=== PATIENT | female | born 1955 | race Caucasian/White ===

== ENCOUNTER → 2017-05-06 | Outpatient (CLI) | payer OTHER ==
--- NOTE | 2017-05-06 09:43 | REPMRS ---
Patient History The patient states she had a clinical breast exam in .Family history of breast cancer in mother at age 80 and breast cancer in maternal aunt at age 35. Digital Mammo Screening Bilat: May 06, 2017 - Exam #: [id number] Bilateral CC and MLO view(s) were taken. Technologist: Deneen Hayward Technologist Prior study comparison: March 19, 2016, bilateral digital mammo screening bilat performed at [facility]. February 15, 2015, bilateral digital mammo screening bilat performed at [facility]. January 26, 2014, bilateral digital mammo screening bilat performed at [facility]. FINDINGS: There are scattered fibroglandular densities. There is a moderate amount of residual fibroglandular tissue which is fairly symmetric. There is no interval development of dominant mass, architectural distortion, or clustered microcalcification typical of malignancy. There has been no change in the appearance of the mammogram from the prior studies. ASSESSMENT: BI-RADS/ACR category 1 mammogram. Negative. Recommendation Routine screening mammogram in 1 year (for women over age 40). This patient's Lifetime Breast Cancer RIsk is estimated at 19.5 %. Annual screening Breast MRI scanniing is recommended for patient's whose lifetime risk assessment is over 20%. This mammogram was interpreted with the aid of an FDA-approved computer-aided dectection system. Electronically Signed By: Saurabh Snow MD 05/06/17 0950
== END ==
LOC: M RAD 08:26
PROVIDERS: ATTEND Obstetrics & Gynecology
DX: Z12.31 Encounter for screening mammogram for malignant neoplasm of breast (principal)

== ENCOUNTER → 2018-05-07 | Outpatient (CLI) | payer OTHER | LOC: M RAD 10:43 | DX: Z12.31 Encounter for screening mammogram for malignant neoplasm of breast (principal); N60.31 Fibrosclerosis of right breast; N60.32 Fibrosclerosis of left breast ==

== ENCOUNTER → 2020-07-03 | Outpatient (REF) | payer OTHER | LOC: M LAB REF 09:02 | PROVIDERS: ATTEND Surgery | DX: D17.1 Benign lipomatous neoplasm of skin and subcutaneous tissue of trunk (principal) ==

== ENCOUNTER → 2020-07-24 | Outpatient (CLI) | payer SELFPAY | LOC: M LABSMTC 12:50 | PROVIDERS: ATTEND Pediatrics | DX: Z20.828 Contact with and (suspected) exposure to other viral communicable diseases (principal) ==

== ENCOUNTER 2024-07-23 16:03 | Emergency (ER) | payer BC, MEDICARE, OTHER ==
[~2024-07-23] VITALS: Ht 154.9 cm; Wt 88.7 kg
[2024-07-23] MEDS ORDERED: ATOR1TAB19 (16:25)
[2024-07-23] MEDS ORDERED: MONT10TA97 (16:25)
[2024-07-23] MEDS ORDERED: OLME40TA (16:25)
[2024-07-23] MEDS: MORPHINE 4 MG/ML 1ML VIAL IV PRN (16:53)
[2024-07-23] MEDS: ONDANSETRON 4MG 2ML VIAL IV ONE (16:55)
[2024-07-23] MEDS: KETOROLAC 30 MG/ML 1ML VIAL IV ONE ×2 (17:07→17:42)
[2024-07-23] MEDS ORDERED: PERC5TAB12 PO (17:31)
[2024-07-23 17:48] VITALS: O2SAT 94
[2024-07-23 18:00] VITALS: BP 154/72; TEMP 97.8
== END 2024-07-23 18:10 | disposition home or self-care (01) ==
LOC: M ED 16:03
DX: S43.004A Unspecified dislocation of right shoulder joint, initial encounter (principal); W01.0XXA Fall on same level from slipping, tripping and stumbling without subsequent striking against object, initial encounter; E78.5 Hyperlipidemia, unspecified; Z88.0 Allergy status to penicillin; Z88.2 Allergy status to sulfonamides; Z79.899 Other long term (current) drug therapy; Z79.02 Long term (current) use of antithrombotics/antiplatelets; Y99.9 Unspecified external cause status
CPT/HCPCS: 73020; 73030; 73060; 96374; 96375; 96376; 99283; J1885; J2405